=== PATIENT | male | born 1990 | race Caucasian/White ===

== ENCOUNTER 2020-07-02 17:27 | Emergency (ER) | payer BC ==
[2020-07-02 17:46] VITALS: BP 125/80; PULSE 103; O2SAT 96
[2020-07-02] MEDS ORDERED: Sodium Chloride 0.9% 1000 ML 1,000 ML ONE (18:31)
[2020-07-02] MEDS ORDERED: Zofran 4 MG/2 ML VIAL ONE (18:31)
[2020-07-02] MEDS: Zofran 4 MG/2 ML VIAL IV ONE (18:32)
[2020-07-02] MEDS: Sodium Chloride 0.9% 1000 ML 1,000 ML IV STA (18:32)
[2020-07-02 18:53] LABS: Absolute Neutrophil Ct (ANC) 4.74 (1.4-6.9); BASOPHIL % 0.3 % (0.0-0.4); Basophil (Absolute #) 0.02 (0-0.4); Eosinophil % 0.5 % (0.00-5.0); Eosinophil (Absolute #) 0.03 (0-0.5); Hematocrit 44.6 % (42-50); Hemoglobin 15.1 gm/dl (12.5-18.0); Lymphocyte (Absolute #) 0.71 (1.0-4.6); Lymphocytes % 11.8 % (24.0-44.0); Mean Cell Volume 90.3 fl (78-100); Mean Corpuscular Hemoglobin 30.6 pg (26-32); Mean Corpuscular Hgb Concent. 33.9 g/dl (32-36); Mean Platelet Volume 10.9 fl (7.5-11.0); Monocyte (Absolute #) 0.54 (0.0-1.3); Monocytes % 8.9 % (0.0-12.0); Neutrophil % 78.5 % (36.0-66.0); Platelet Count 165 K/mm3 (150-450); Red Blood Count 4.94 M/mm3 (4.1-5.6)
[2020-07-02 19:02] LABS: Appearance SLIGHTLY CLOUDY (CLEAR); Bilirubin NEGATIVE (NEGATIVE); Blood NEGATIVE Ery/ul (0-5); Glucose NEGATIVE (NEGATIVE); Ketones TRACE (NEGATIVE); Leukocyte Esterase NEGATIVE (NEGATIVE); Mucus SLIGHT /HPF (NEGATIVE); Nitrite NEGATIVE (NEGATIVE); Protein,Urine Dip 30 (Negative); Specific Gravity 1.027 (1.005-1.025); Urobilinogen 4 mg/dL (0-1); WBC 0-2 /HPF (0-5)
[2020-07-02 19:09] LABS: ALBUMIN 4.4 g/dL (3.5-5.0); ALKALINE PHOSPHATASE 83 U/L (38-126); ANION GAP 13.3 MEQ/L (5-15); BLOOD UREA NITROGEN 12 mg/dL (9-20); CHLORIDE 96 mmol/L (98-107); Carbon Dioxide 28 mmol/L (22-30); Creatinine 1 1.02 mg/dL (0.66-1.25); EST GLOMERULAR FILTRATION RATE > 60.0 ML/MIN; Glucose 94 mg/dL (74-106); LIPASE 62 U/L (23-300); Potassium 3.8 mmol/L (3.5-5.1); SGOT/AST 37 U/L (17-59); SGPT/ALT 39 U/L (0-50); SODIUM 134 mmol/L (137-145); Total Protein 7.5 g/dL (6.3-8.2)
--- NOTE | 2020-07-02 20:44 | ERPHSYRPT ---
- History of Present Illness Time Seen by Provider: 07/02/20 17:45 Historian: patient Exam Limitations: no limitations Patient Subjective Stated Complaint: to er c/o vomitting and diarrhea onset Tuesday with upper abd pain and headache present reports unable to keep anything down. Triage Nursing Assessment: to er c/o vomitting abd pain and diarrhea x 3 days reprots severe headache present. pt arrive p/w/d resp easy [id number] Physician History: Patient a 30-year-old male presents to our ED with complaints of nausea vomiting diarrhea and vague diffuse abdominal pain that has been going on for 3 days. No fever. No trauma. No rash. Symptoms are mild to moderate in intensity. No specific worsening improving factors. No obvious sick contacts. Patient is otherwise healthy. He works at a [employer]. Patient voices no other complaints or concerns at this time. Timing/Duration: day(s) (3 days) Activities at Onset: none Quality: aching Abdominal Pain Onset Location: periumbilical Pain Radiation: no radiation Severity of Pain-Max: moderate Severity of Pain-Current: mild Modifying Factors: Improves With: other (18) Associated Symptoms: denies symptoms, No chest pain, No shortness of breath, No syncope, No testicular pain, No vomiting, No weakness Previous symptoms: no prior history Allergies/Adverse Reactions: No Known Drug Allergies Allergy (Unverified 07/02/20 17:46) Home Medications: No Reportable Medications [No Reported Medications] 07/02/20 [History] Travel Risk - International Travel Have you traveled outside of the country in past 3 weeks: No - Coronavirus Screening Are you exhibiting any of the following symptoms?: Yes Symptoms: Vomiting/Diarrhea, Headaches/Body Aches/Fatigue Close contact with a COVID-19 positive Pt in past 14-21 Days: No - Vaccine Status Have you recieved a Covid-19 vaccination: No - Review of Systems Constitutional: No Symptoms, No Fever, No Chills Eyes: No Symptoms Ears, Nose, & Throat: No Symptoms Respiratory: No Symptoms, No Cough, No Dyspnea Cardiac: No Symptoms, No Chest Pain, No Edema, No Syncope Abdominal/Gastrointestinal: No Symptoms, No Abdominal Pain, No Nausea, No Vomiting, No Diarrhea Genitourinary Symptoms: No Symptoms, No Dysuria Musculoskeletal: No Symptoms, No Back Pain, No Neck Pain Skin: No Symptoms, No Rash Neurological: No Symptoms, No Dizziness, No Focal Weakness, No Sensory Changes Psychological: No Symptoms Endocrine: No Symptoms Hematologic/Lymphatic: No Symptoms Immunological/Allergic: No Symptoms All Other Systems: Reviewed and Negative - Past Medical History Pertinent Past Medical History: Yes Other Medical History: luekemia as a child - Past Surgical History Past Surgical History: Yes Other Surgical History: port placed as child - Social History Smoking Status: Never smoker Drug Use: none - Nursing Vital Signs Nursing Vital Signs: Initial Vital Signs Temperature 98.2 F 07/02/20 17:39 Pulse Rate 103 H 07/02/20 17:39 Respiratory Rate 16 07/02/20 17:39 Blood Pressure 125/80 07/02/20 17:39 O2 Sat by Pulse Oximetry 96 07/02/20 17:39 Pain Scale Pain Intensity 6 - Physical Exam General Appearance: no apparent distress, alert Eye Exam: PERRL/EOMI, eyes nml inspection Ears, Nose, Throat Exam: normal ENT inspection, pharynx normal, moist mucous membranes Neck Exam: normal inspection, non-tender, supple, full range of motion Respiratory Exam: normal breath sounds, lungs clear, No respiratory distress Cardiovascular Exam: regular rate/rhythm, normal heart sounds Gastrointestinal/Abdomen Exam: soft, other (Mild diffuse abdominal tenderness primarily in the periumbilical region.), No tenderness, No mass Back Exam: normal inspection, normal range of motion, No CVA tenderness, No vertebral tenderness Extremity Exam: normal inspection, normal range of motion, pelvis stable Neurologic Exam: alert, oriented x 3, cooperative, normal mood/affect, nml cerebellar function, sensation nml, No motor deficits Skin Exam: normal color, warm, dry Lymphatic Exam: No adenopathy SpO2 Interpretation: normal SpO2: 96 O2 Delivery: Room Air - Course Nursing assessment & vital signs reviewed: Yes - CT Exams Abdomen/Pelvis CT Interpretation: Tele-radiologist Report (Subtle hazy edema within the central mesentery with minimally enlarged lymph nodes. This is likely idiopathic although early changes of mesenteric panniculitis should also be considered.) Ordered Tests: Active Orders 24 hr Category Date Time Status IV Insertion STAT Care 07/02/20 18:28 Active ABDOMEN AND PELVIS W CONTRAST [CT] Stat Exams 07/02/20 18:29 Taken CBC W DIFF Stat Lab 07/02/20 18:40 Completed CMP Stat Lab 07/02/20 18:40 Completed LIPASE Stat Lab 07/02/20 18:40 Completed TROPONIN Q3H Lab 07/02/20 18:40 Completed TROPONIN Q3H Lab 07/02/20 21:30 Ordered TROPONIN Q3H Lab 07/03/20 00:30 Ordered TROPONIN Q3H Lab 07/03/20 03:30 Ordered TROPONIN Q3H Lab 07/03/20 06:30 Ordered UA W/RFX UR CULTURE Stat Lab 07/02/20 18:40 Completed Medication Summary Discontinued Medications Generic Name Dose Route Start Last Admin Trade Name Freq PRN Reason Stop Dose Admin Sodium Chloride 1,000 mls @ 999 mls/hr 07/02/20 18:28 07/02/20 18:32 Sodium Chloride 0.9% 1000 Ml IV 07/02/20 19:28 999 mls/hr .Q1H1M STA Administration Sodium Chloride Confirm 07/02/20 18:31 Sodium Chloride 0.9% 1000 Ml Administered 07/02/20 18:32 Dose 1,000 mls @ ud .ROUTE .STK-MED ONE Ondansetron HCl 4 mg 07/02/20 18:28 07/02/20 18:32 Zofran 4 Mg/2 Ml Vial IV 07/02/20 18:29 4 mg STAT ONE Administration Ondansetron HCl Confirm 07/02/20 18:31 Zofran 4 Mg/2 Ml Vial Administered 07/02/20 18:32 Dose 4 mg .ROUTE .STK-MED ONE Lab/Rad Data: Laboratory Result Diagrams 07/02/20 18:40 07/02/20 18:40 Laboratory Results 07/02/20 07/02/20 07/02/20 Range/Units 18:40 18:40 18:40 WBC (4.0-10.5) K/mm3 RBC (4.1-5.6) M/mm3 Hgb (12.5-18.0) gm/dl Hct (42-50) % MCV (78-100) fl MCH (26-32) pg MCHC (32-36) g/dl RDW (11.5-14.0) % Plt Count (150-450) K/mm3 MPV (7.5-11.0) fl Gran % (36.0-66.0) % Eos # (Auto) (0-0.5) Absolute Lymphs (auto) (1.0-4.6) Absolute Monos (auto) (0.0-1.3) Lymphocytes % (24.0-44.0) % Monocytes % (0.0-12.0) % Eosinophils % (0.00-5.0) % Basophils % (0.0-0.4) % Absolute Granulocytes (1.4-6.9) Basophils # (0-0.4) Sodium 134 L (137-145) mmol/L Potassium 3.8 (3.5-5.1) mmol/L Chloride 96 L (98-107) mmol/L Carbon Dioxide 28 (22-30) mmol/L Anion Gap 13.3 (5-15) MEQ/L BUN 12 (9-20) mg/dL Creatinine 1.02 (0.66-1.25) mg/dL Estimated GFR > 60.0 ML/MIN Glucose 94 (74-106) mg/dL Calcium 9.0 (8.4-10.2) mg/dL Total Bilirubin 3.90 H (0.2-1.3) mg/dL AST 37 (17-59) U/L ALT 39 (0-50) U/L Alkaline Phosphatase 83 (38-126) U/L Troponin I < 0.012 (0.000-0.034) ng/mL Serum Total Protein 7.5 (6.3-8.2) g/dL Albumin 4.4 (3.5-5.0) g/dL Lipase 62 (23-300) U/L Urine Color RONAN (YELLOW) Urine Appearance SLIGHTLY CLOUDY (CLEAR) Urine pH 6.0 (5-6) Ur Specific [place] 1.027 (1.005-1.025) Urine Protein 30 (Negative) Urine Ketones TRACE (NEGATIVE) Urine Blood NEGATIVE (0-5) Roger/ul Urine Nitrite NEGATIVE (NEGATIVE) Urine Bilirubin NEGATIVE (NEGATIVE) Urine Urobilinogen 4 (0-1) mg/dL Ur Leukocyte Esterase NEGATIVE (NEGATIVE) Urine WBC (Auto) 0-2 (0-5) /HPF Urine RBC (Auto) NONE (0-2) /HPF U Epithel Cells (Auto) NONE (FEW) /HPF Urine Bacteria (Auto) NONE (NEGATIVE) /HPF Urine Mucus (Auto) SLIGHT (NEGATIVE) /HPF Urine Culture Reflexed NO (NO) Urine Glucose NEGATIVE (NEGATIVE) mg/dL 07/02/20 Range/Units 18:40 WBC 6.0 (4.0-10.5) K/mm3 RBC 4.94 (4.1-5.6) M/mm3 Hgb 15.1 (12.5-18.0) gm/dl Hct 44.6 (42-50) % MCV 90.3 (78-100) fl MCH 30.6 (26-32) pg MCHC 33.9 (32-36) g/dl RDW 14.0 (11.5-14.0) % Plt Count 165 (150-450) K/mm3 MPV 10.9 (7.5-11.0) fl Gran % 78.5 H (36.0-66.0) % Eos # (Auto) 0.03 (0-0.5) Absolute Lymphs (auto) 0.71 L (1.0-4.6) Absolute Monos (auto) 0.54 (0.0-1.3) Lymphocytes % 11.8 L (24.0-44.0) % Monocytes % 8.9 (0.0-12.0) % Eosinophils % 0.5 (0.00-5.0) % Basophils % 0.3 (0.0-0.4) % Absolute Granulocytes 4.74 (1.4-6.9) Basophils # 0.02 (0-0.4) Sodium (137-145) mmol/L Potassium (3.5-5.1) mmol/L Chloride (98-107) mmol/L Carbon Dioxide (22-30) mmol/L Anion Gap (5-15) MEQ/L BUN (9-20) mg/dL Creatinine (0.66-1.25) mg/dL Estimated GFR ML/MIN Glucose (74-106) mg/dL Calcium (8.4-10.2) mg/dL Total Bilirubin (0.2-1.3) mg/dL AST (17-59) U/L ALT (0-50) U/L Alkaline Phosphatase (38-126) U/L Troponin I (0.000-0.034) ng/mL Serum Total Protein (6.3-8.2) g/dL Albumin (3.5-5.0) g/dL Lipase (23-300) U/L Urine Color (YELLOW) Urine Appearance (CLEAR) Urine pH (5-6) Ur Specific [place] (1.005-1.025) Urine Protein (Negative) Urine Ketones (NEGATIVE) Urine Blood (0-5) Roger/ul Urine Nitrite (NEGATIVE) Urine Bilirubin (NEGATIVE) Urine Urobilinogen (0-1) mg/dL Ur Leukocyte Esterase (NEGATIVE) Urine WBC (Auto) (0-5) /HPF Urine RBC (Auto) (0-2) /HPF U Epithel Cells (Auto) (FEW) /HPF Urine Bacteria (Auto) (NEGATIVE) /HPF Urine Mucus (Auto) (NEGATIVE) /HPF Urine Culture Reflexed (NO) Urine Glucose (NEGATIVE) mg/dL - Progress Progress: improved Progress Note: Patient reassessed. He states he feels significantly better with the IV fluids. Patient declined pain medication. Laboratory work-up significant for elevated total bili. This lab will need to be trended. Patient advised clear liquids for the next few days. Patient advised to follow-up with his primary care doctor within 48 hours for reevaluation. Patient understands and agrees with the plan of care. He voices no other complaints at this time. Patient requesting discharge. Will discharge at this time. 07/02/20 20:52 Counseled pt/family regarding: lab results, diagnosis, need for follow-up, rad results - Departure Departure Disposition: Home Clinical Impression: Abdominal pain, Elevated bilirubin, Nausea and vomiting, Diarrhea, Lymphadenopathy Condition: Stable Critical Care Time: No Referrals: DOCTOR,NO FAMILY [Primary Care Provider] - EMY MARC [ACTIVE STAFF] - Additional Instructions: Discharge/Care Plan SVEN FELDMAN was seen on 07/02/20 in the Emergency Room. The patient was c ounseled regarding Diagnosis,Lab results, Imaging studies, need for follow up and when to return to the Emergency Room. Prescriptions given: Discharge Note I have spoken with the patient and/or caregivers. I have explained the patient's condition, diagnosis and treatment plan based on the information available to me at this time. I have answered the patient's and/or caregiver's questions and addressed any concerns. The patient and/or caregivers have as good understanding of the patient's diagnosis, condition and treatment plan as can be expected at this point. The vital signs have been stable. The patient's condition is stable and appropriate for discharge from the emergency department. The patient will pursue further outpatient evaluation with the primary care physician or other designated or consulting physician as outlined in the discharge instructions. The patient and/or caregivers are agreeable to this plan of care and follow-up instructions have been explained in detail. The patient and/or caregivers have received these instruction. The patient/and or caregivers are aware that any significant change in condition or worsening of symptoms should prompt an immediate return to this or the closest emergency department or call 911.
--- NOTE | 2020-07-03 23:23 | XRAY ---
Exam: CT of the abdomen and pelvis with IV contrast from 07/02/2020. CTDI: 18.69 mGy Comparison: None. Indication: 30-year-old male with possible colitis; diarrhea, nausea, and vomiting for the last 3 days. Technique: Post-IV contrast axial images were obtained through the abdomen and pelvis. No oral contrast was given. Delayed axial images were obtained through the abdomen and pelvis. Reconstructed coronal and sagittal images were created and reviewed. Findings: The lung bases reveal minimal posterior bibasilar atelectatic changes. No posterior pleural fluid is seen. The heart size is normal without pericardial effusion. There is a suggestion of mild fatty infiltration within the liver. The liver is not enlarged. No focal liver mass or intrahepatic biliary duct distention is seen. The gallbladder is distended and reveals no dense calcifications within it. The spleen is mildly enlarged with a greatest transverse diameter of 15.9 cm and a greatest craniocaudal dimension of 15.0 cm. No focal splenic mass is seen. The pancreas and adrenal glands appear unremarkable. The kidneys are unremarkable size and shape. No renal calculi, renal mass, or hydronephrosis is seen. Both kidneys function on delayed images. The abdominal aorta reveals no evidence of aneurysm. No abnormal retroperitoneal lymphadenopathy is seen. However, there is a suggestion of slight haziness of the abdominal mesentery centered just to the left of midline with small lymph node densities. Correlate clinically regarding mesenteric adenitis or mesenteric panniculitis. A small fat-containing umbilical hernia is seen. No ventral bowel containing hernia is seen. There is no free intraperitoneal air. I see no evidence of bowel obstruction or bowel wall thickening. The colon appears underdistended. There is no evidence of appendicitis within the right lower quadrant. The pelvis reveals no suspicious mass, abnormal pelvic lymphadenopathy, or free intraperitoneal fluid. The urinary bladder is only minimally distended, but appears grossly unremarkable. The seminal vesicles and prostate gland appear unremarkable. The skeleton reveals no evidence of fracture or aggressive bone lesion. Impression: 1. There is subtle haziness within the central abdominal mesentery centered just to the left of midline with some mildly prominent lymph node densities. Consider mesenteric adenitis or mesenteric panniculitis. 2. Suspect mild hepatic steatosis, mild splenomegaly, and a small fat-containing umbilical hernia. 3. No other acute process is seen within the abdomen or pelvis.
== END 2020-07-02 21:12 | disposition home or self-care (01) ==
LOC: ED 17:27
DX: R10.9 Unspecified abdominal pain (principal); E80.7 Disorder of bilirubin metabolism, unspecified; R11.2 Nausea with vomiting, unspecified; R19.7 Diarrhea, unspecified; R59.1 Generalized enlarged lymph nodes
CPT/HCPCS: 36000; 36415; 74177; 80053; 81001; 83690; 84484; 85025; 96360; 96374; 99284; J2405